=== PATIENT | male | born 1995 | race Caucasian/White ===

== ENCOUNTER 2022-02-13 20:48 | Emergency (ER) | payer OTHER ==
--- NOTE | 2022-02-13 21:15 | NUR ---
CALLED TO [facility] NO ANSWER
--- NOTE | 2022-02-13 21:30 | NUR ---
NOT IN WAITING ROOM
== END 2022-02-13 22:58 | disposition left against medical advice (07) ==
LOC: ER 20:50
DX: Z53.21 Procedure and treatment not carried out due to patient leaving prior to being seen by health care provider (principal)